=== PATIENT | male | born 1985 | race Caucasian/White ===

== ENCOUNTER 2016-12-18 18:47 | Emergency (ER) | payer OTHER ==
[~2016-12-18] VITALS: Ht 175.3 cm; Wt 75.0 kg
[2016-12-18 18:48] VITALS: BP 145/85; PULSE 84; RESP 16; TEMP 98.4; O2SAT 99
--- NOTE | 2016-12-18 21:56 | PD ---
HPI Chief Complaint: Skin Problem Time Seen by Provider: 21:31 Travel History International Travel<30 days: No Contact w/Intl Traveler<30days: No Traveled to known affect area: No History of Present Illness HPI 31-year-old white male presents to emergency department for evaluation of possible shingles. The patient states that he had been seen in an urgent care on 2 occasions now. When the symptoms started earlier this past week he was diagnosed with potential folliculitis. He states that he went back on Wednesday and was told that he most likely had shingles now. He was given prescription for acyclovir and topical acyclovir. Patient now states that he would like to get a second opinion. He also is complaining of pain as well as some blurred vision in the right eye. He denies any rash on his nose. He states the rash started on the back of his right scalp and now encompasses his right anterior forehead and a few lesions on his cheek. Patient does admit to general malaise, myalgias and decreased energy. No diplopia. No tearing or discharge. No fever or chills. History Past Medical Histgory Narrative Medical Immune deficiency Tetanus Vaccination: < 5 Years Past Surgical History Surgical History: No Previous Surgery Social History Alcohol Use: No Tobacco Use: No Review of Systems Except as stated in HPI: all other systems reviewed are Neg Physical Exam Narrative GENERAL: Well-developed, well-nourished in no acute distress. Nontoxic appearing. HEAD: Normocephalic, patient has a erythematous macular rash with vesicular central lesions involving the right scalp, right forehead, and right cheek. There is no involvement of the nose. This is consistent with shingles. EYES: Pupils equal round and reactive. Extraocular motions intact. No scleral icterus. No injection or drainage. Fluorescein is instilled in the right eye. No dendrites identified. Anterior chambers clear ENT: TMs clear without erythema. The external auditory canals clear. Nose: clear . Posterior pharynx is pink and moist. No tonsillar edema or exudate. Uvula midline. Airway patent. NECK: Trachea midline.Supple, nontender, moves head freely. No central bony tenderness or spasm. CARDIOVASCULAR: Regular rate and rhythm without murmurs, gallops, or rubs. RESPIRATORY: Clear to auscultation. Breath sounds equal bilaterally. No wheezes , rales, or rhonchi. GASTROINTESTINAL: Abdomen soft, non-tender, nondistended. No hepato-splenomegaly , or palpable masses. No guarding. EXTREMITIES: No clubbing, cyanosis, or edema. No joint tenderness, effusion, or edema noted. BACK: Nontender without deformity or crepitance. No flank tenderness. Data Data Last Documented VS Vital Signs Date Time Temp Pulse Resp B/P (MAP) Pulse Ox O2 Delivery O2 Flow Rate FiO2 12/18/16 18:48 98.4 84 16 145/85 (105) 99 MDM Medical Screen Exam Complete: Yes Emergency Medical Condition: No Differential Diagnosis Differential diagnosis: Folliculitis, shingles, trigeminal neuralgia Narrative Course A medical screening exam was performed: At the time of evaluation the presenting medical condition was determined not to be of an emergent nature. The patient was given the option of receiving additional care, but declined. Patient was given options for additional community resources from which to obtain care. The Patient Has Been advised to seek medical attention for their presenting complaint. The patient has been advised to return to the ER at any time if an emergent condition develops. Primary Impression: Encounter for medical screening examination Condition: Rodrigo Whitmore Dec 18, 2016 21:56
== END 2016-12-18 22:18 | disposition left against medical advice (07) ==
LOC: NEPD 18:47
DX: H57.11 Ocular pain, right eye (principal); R21 Rash and other nonspecific skin eruption; L98.9 Disorder of the skin and subcutaneous tissue, unspecified
CPT/HCPCS: 99281